=== PATIENT | male | born 1960 | race Caucasian/White ===

== ENCOUNTER 2020-03-20 14:42 | Emergency (ER) | payer MEDICAID ==
[~2020-03-20] VITALS: Ht 172.7 cm; Wt 91.2 kg
--- NOTE | 2020-03-20 14:55 | NUR ---
shahzad, from [place], c/o SOB Hx CHF 96% on room air, out of lasix x2 days. PT AAOX4, VSS. RR EVEN & UNLABORED. DENIES CP, DIZZINESS, N/V, WEAKNESS AT THIS TIME. PT SEEN & EVAL'D BY DR. HERNANDEZ. 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 WILL CONT TO MONITOR.
[2020-03-20 15:34] LABS: BASOPHILS # (AUTO) 0.1 /CMM (0.0-0.2); BASOPHILS % (AUTO) 1.6 % (0.0-2.0); HEMATOCRIT 43 % (39-51); HEMOGLOBIN 14.4 g/dL (13.5-17.5); LYMPHOCYTES # (AUTO) 1.2 /CMM (0.8-4.8); LYMPHOCYTES % (AUTO) 23.8 % (20.0-44.0); MEAN CORPUSCULAR HGB CONC 33 g/dl (31.0-36.0); MEAN CORPUSCULAR VOLUME 90 fL (80-96); MONOCYTES # (AUTO) 0.5 /CMM (0.1-1.30); MONOCYTES % (AUTO) 8.6 % (2.0-12.0); NEUTROPHILS # (AUTO) 3.3 /CMM (1.8-8.9); PLATELET COUNT (AUTO) 235 /CMM (150-450); RED BLOOD CELL COUNT(AUTO) 4.77 MIL/uL (4.5-6.0); WHITE BLOOD COUNT (AUTO) 5.2 K/uL (4.3-11.0)
--- NOTE | 2020-03-20 16:15 | NUR ---
PT ASLEEP, EASILY AWAKEN BY VERBAL STIMULI. RR EVEN & UNLABORED. DENIES CP, SOB, DIZZINESS, N/V AT THIS TIME. WILL CONT TO MONITOR.
[2020-03-20 16:24] LABS: CALCIUM, SERUM 9.3 mg/dL (8.5-10.1); CREATININE 1.9 mg/dL (0.6-1.3); POTASSIUM 3.4 mmol/L (3.5-5.1)
[2020-03-20 16:37] LABS: ALBUMIN 3.5 g/dL (3.4-5.0); BILIRUBIN,DIRECT 0.2 mg/dL (0.0-0.2); BILIRUBIN,TOTAL 0.7 mg/dL (0.2-1.0); TOTAL PROTEIN, SERUM 6.9 g/dL (6.4-8.2)
[2020-03-20 18:09] VITALS: BP 145/87
--- NOTE | 2020-03-20 18:12 | NUR ---
Patient discharged to home in stable condition. Written and verbal after care instructions given. Patient verbalizes understanding of instruction. IV removed. Catheter intact and site benign. Pressure and 4x4 applied to site. No bleeding noted.
== END 2020-03-20 18:12 | disposition home or self-care (01) ==
LOC: ER 14:55
DX: I11.0 Hypertensive heart disease with heart failure (principal); I50.9 Heart failure, unspecified
CPT/HCPCS: 36415; 71045-TC; 80048-TC; 80076-TC; 83880; 84484-TC; 85025-TC